=== PATIENT | male | born 1955 | race Caucasian/White ===

== ENCOUNTER → 2019-11-26 | Outpatient (CLI) | payer OTHER ==
--- NOTE | 2019-11-30 07:45 | PE ---
Nuclear medicine PET/CT HISTORY: Solitary pulmonary nodule, initial Patient received 10.3 mCi F-18 FDG intravenously in delayed scanning was performed from the skull bas e to the mid thighs. An attenuation correction CT, localization CT was performed. There are no comparisons. neck and CHEST: There is no cervical or supraclavicular adenopathy. No mediastinal, axillary, or alexsandra r adenopathy. There are coronary artery calcifications present. Minimal pericardial effusion, no pleu ral effusion. Within the right lower lobe there is a pulmonary nodule present measuring approximately 2 cm in size and showing associated hypermetabolic uptake, SUV 3.9. ABDOMEN: There is no evident liver mass, no adrenal mass. No retroperitoneal adenopathy. Kidneys, gal lbladder, spleen, pancreas are within normal limits. The stomach shows some wall thickening which is indeterminate. Mild uptake present along the stomach distally, SUV 3.2. Atheromatous changes present within the aorta. There is no ascites. Prostate is enlarged and shows associated calcifications. There is a low dense focus within the left groin measuring approximately 4.8 cm in greatest transvers e dimension with extension from the region anterior to the left hip along the proximal left lower ext remity is some local mass effect on the common femoral artery and vein. No associated uptake. Osseous structures are remarkable for arthropathy within the bilateral hips, there is degenerative disc brito ge, facet arthropathy in the lower lumbar spine. IMPRESSION: Hypermetabolic uptake is associated with the right lower lobe lung nodule, mild uptake wi thin the stomach. Indeterminate low dense focus within the left groin.
== END | disposition home or self-care (01) ==
LOC: RADPETMAIN 14:31
PROVIDERS: ATTEND Family Medicine
DX: R91.1 Solitary pulmonary nodule (principal); R93.3 Abnormal findings on diagnostic imaging of other parts of digestive tract
CPT/HCPCS: 78815; A9552

== ENCOUNTER 2019-12-14 01:13 | Inpatient (IN) | payer OTHER ==
--- NOTE | 2019-12-14 01:44 | ED ---
SOB HPI - General Chief Complaint: Shortness of Breath Stated Complaint: SOB Time Seen by Provider: 12/14/19 01:15 Source: patient, EMS, RN notes reviewed Mode of arrival: EMS Limitations: altered mental status - History of Present Illness Initial Comments: This patient is 64-year-old man transferred here from outside hospital for admission due to dyspnea. When I interview the patient, he states he has had shortness of breath going on for a couple of years. He is not able to provide much additional history as he does appear to be somnolent and I suspect has hypercarbia. Patient denies having a fever. States his cough is a same as it always is. No chest pain or leg swelling. MD Complaint: shortness of breath, cough -: year(s) Consistency: constant Improves With: nothing Worsens With: nothing Known History Of: COPD Associated Symptoms: denies other symptoms Treatments Prior to Arrival: oxygen, bronchodilator, diuretics - Related Data Home Oxygen Therapy: Yes Home Medications Medication Instructions Recorded Confirmed Albuterol Nebulized [Ventolin 2.5 mg INHALATION TID PRN 12/14/19 12/14/19 Nebulized] Albuterol Sulfate [Proair Hfa] 1 puff INHALATION QID PRN 12/14/19 12/14/19 Atorvastatin [Lipitor] 20 mg PO HS 12/14/19 12/14/19 Budesonide/Formoterol Fumarate 2 puff INHALATION BID 12/14/19 12/14/19 [Symbicort 160-4.5 Mcg Inhaler] Diltiazem HCl [Cartia Xt] 240 mg PO DAILY 12/14/19 12/14/19 Divalproex [Depakote] 500 mg PO BID 12/14/19 12/14/19 Lisinopril-Hctz 20-12.5 mg 1 tab PO DAILY 12/14/19 12/14/19 [Zestoretic 20-12.5] Naproxen Sodium [Naprelan] 500 mg PO BID 12/14/19 12/14/19 Omeprazole 20 mg PO DAILY 12/14/19 12/14/19 lamoTRIgine 100 mg PO BID 12/14/19 12/14/19 risperiDONE [RisperDAL] 6 mg PO HS 12/14/19 12/14/19 Allergies Allergy/AdvReac Type Severity Reaction Status Date / Time No Known Allergies Allergy Verified 12/14/19 08:26 Review of Systems ROS Statement: Those systems with pertinent positive or pertinent negative responses have been documented in the HPI. ROS Other: All systems not noted in ROS Statement are negative. Limitations: ROS unobtainable due to patients medical condition Constitutional: Denies: fever Respiratory: Reports: cough, dyspnea Cardiovascular: Denies: chest pain, palpitations, edema, syncope Gastrointestinal: Denies: abdominal pain, vomiting, melena, hematochezia Neurological: Denies: headache Past Medical History Past Medical History: Heart Failure, COPD, GERD/Reflux, Hypertension History of Any Multi-Drug Resistant Organisms: None Reported Past Surgical History: No Surgical Hx Reported Past Psychological History: Bipolar Smoking Status: Former smoker Past Alcohol Use History: None Reported Past Drug Use History: Marijuana - Past Family History Mother Family Medical History: COPD Father Family Medical History: Cancer Additional Family Medical History / Comment(s): esophageal CA General Exam Limitations: no limitations General appearance: alert, obtunded Head exam: Present: atraumatic, normocephalic Eye exam: Present: normal appearance. Absent: scleral icterus, conjunctival injection Neck exam: Present: normal inspection, full ROM Respiratory exam: Present: respiratory distress, wheezes, rales (Bilateral bases), decreased breath sounds. Absent: rhonchi, stridor Cardiovascular Exam: Present: regular rate, normal rhythm, gallop. Absent: systolic murmur, diastolic murmur, rubs GI/Abdominal exam: Present: soft. Absent: distended, tenderness, guarding, rebound, rigid, mass Extremities exam: Present: normal inspection, normal capillary refill. Absent: pedal edema, calf tenderness Back exam: Present: normal inspection. Absent: CVA tenderness (R), CVA tend erness (L) Neurological exam: Present: alert. Absent: motor sensory deficit Skin exam: Present: warm, dry, intact, normal color. Absent: rash Course Vital Signs 12/14/19 12/14/19 12/14/19 01:17 01:30 01:47 Temperature 97.8 F Pulse Rate 96 97 Respiratory 22 34 H 34 H Rate Blood Pressure 155/98 151/98 O2 Sat by Pulse 97 92 L Oximetry 12/14/19 12/14/19 12/14/19 02:00 02:30 02:45 Temperature Pulse Rate 93 86 95 Respiratory 24 24 24 Rate Blood Pressure 138/94 131/84 113/78 O2 Sat by Pulse 97 95 95 Oximetry 12/14/19 03:15 Temperature Pulse Rate 93 Respiratory 31 H Rate Blood Pressure 163/101 O2 Sat by Pulse 98 Oximetry Medical Decision Making - Medical Decision Making Patient is 64-year-old man transferred here from outside hospital for dyspnea. There does appear to be multifactorial etiology though mainly COPD with some element of CHF. Patient is placed on BiPAP and blood gas does show retention with pCO2 95. Clinically patient is starting to improve following the BiPAP. Case discussed with Dr. Hernandez and patient will go to ICU. Also case discussed with admitting physician. - Lab Data Result diagrams: 12/15/19 05:27 12/15/19 05:27 Lab Results 12/14/19 12/14/19 12/14/19 Range/Units 01:35 01:35 01:35 WBC 5.9 (3.8-10.6) k/uL RBC 5.40 (4.30-5.90) m/uL Hgb 17.1 (13.0-17.5) gm/dL Hct 54.2 H (39.0-53.0) % MCV 100.3 H (80.0-100.0) fL MCH 31.6 (25.0-35.0) pg MCHC 31.5 (31.0-37.0) g/dL RDW 13.7 (11.5-15.5) % Plt Count 236 (150-450) k/uL Neutrophils % 90 % Lymphocytes % 5 % Monocytes % 3 % Eosinophils % 1 % Basophils % 0 % Neutrophils # 5.3 (1.3-7.7) k/uL Lymphocytes # 0.3 L (1.0-4.8) k/uL Monocytes # 0.2 (0-1.0) k/uL Eosinophils # 0.1 (0-0.7) k/uL Basophils # 0.0 (0-0.2) k/uL PT 10.4 (9.0-12.0) sec INR 1.0 (<1.2) APTT 23.5 (22.0-30.0) sec VBG pH (7.31-7.41) VBG pCO2 (37-51) mmHg VBG HCO3 (24-28) mmol/L Sodium 131 L (137-145) mmol/L Potassium 4.6 (3.5-5.1) mmol/L Chloride 84 L (98-107) mmol/L Carbon Dioxide 42 H* (22-30) mmol/L Anion Gap 5 mmol/L BUN 15 (9-20) mg/dL Creatinine 0.66 (0.66-1.25) mg/dL Est GFR (CKD-EPI)AfAm >90 (>60 ml/min/1.73 sqM) Est GFR (CKD-EPI)NonAf >90 (>60 ml/min/1.73 sqM) Glucose 117 H (74-99) mg/dL Calcium 9.3 (8.4-10.2) mg/dL Total Bilirubin 0.5 (0.2-1.3) mg/dL AST 29 (17-59) U/L ALT 23 (4-49) U/L Alkaline Phosphatase 47 (38-126) U/L Troponin I (0.000-0.034) ng/mL NT-Pro-B Natriuret Pep pg/mL Total Protein 6.8 (6.3-8.2) g/dL Albumin 4.3 (3.5-5.0) g/dL 12/14/19 12/14/19 12/14/19 Range/Units 01:35 01:35 01:35 WBC (3.8-10.6) k/uL RBC (4.30-5.90) m/uL Hgb (13.0-17.5) gm/dL Hct (39.0-53.0) % MCV (80.0-100.0) fL MCH (25.0-35.0) pg MCHC (31.0-37.0) g/dL RDW (11.5-15.5) % Plt Count (150-450) k/uL Neutrophils % % Lymphocytes % % Monocytes % % Eosinophils % % Basophils % % Neutrophils # (1.3-7.7) k/uL Lymphocytes # (1.0-4.8) k/uL Monocytes # (0-1.0) k/uL Eosinophils # (0-0.7) k/uL Basophils # (0-0.2) k/uL PT (9.0-12.0) sec INR (<1.2) APTT (22.0-30.0) sec VBG pH 7.27 L (7.31-7.41) VBG pCO2 95 H* (37-51) mmHg VBG HCO3 42 H (24-28) mmol/L Sodium (137-145) mmol/L Potassium (3.5-5.1) mmol/L Chloride (98-107) mmol/L Carbon Dioxide (22-30) mmol/L Anion Gap mmol/L BUN (9-20) mg/dL Creatinine (0.66-1.25) mg/dL Est GFR (CKD-EPI)AfAm (>60 ml/min/1.73 sqM) Est GFR (CKD-EPI)NonAf (>60 ml/min/1.73 sqM) Glucose (74-99) mg/dL Calcium (8.4-10.2) mg/dL Total Bilirubin (0.2-1.3) mg/dL AST (17-59) U/L ALT (4-49) U/L Alkaline Phosphatase (38-126) U/L Troponin I 0.032 (0.000-0.034) ng/mL NT-Pro-B Natriuret Pep 2160 pg/mL Total Protein (6.3-8.2) g/dL Albumin (3.5-5.0) g/dL - EKG Data -: EKG Interpreted by Me EKG shows normal: sinus rhythm, axis (Normal), intervals (Normal), QRS complexes (There are Q waves in leads 3 and aVF consistent with possible old inferior infarct), ST-T waves Rate: normal (Rate 95 bpm) Critical Care Time Critical Care Time: Yes (35 minutes) Disposition Clinical Impression: COPD (chronic obstructive pulmonary disease), Acute respiratory failure, Hypercarbia Disposition: HOME SELF-CARE Condition: Good Is patient prescribed a controlled substance at d/c from ED?: No
[2019-12-14 01:54] LABS: VBG PH 7.27 (7.31-7.41)
[2019-12-14 01:55] LABS: Basophils % (A) 0 %; Eosinophils # (A) 0.1 k/uL (0-0.7); Eosinophils % (A) 1 %; HCT 54.2 % (39.0-53.0); HGB 17.1 gm/dL (13.0-17.5); Lymphocytes # (A) 0.3 k/uL (1.0-4.8); Lymphocytes % (A) 5 %; MCH 31.6 pg (25.0-35.0); MCHC 31.5 g/dL (31.0-37.0); MCV 100.3 fL (80.0-100.0); Mean Platelet Volume 7.5; Monocytes # (A) 0.2 k/uL (0-1.0); Monocytes % (A) 3 %; Neutrophils # (A) 5.3 k/uL (1.3-7.7); Neutrophils % (A) 90 %; Platelet Count 236 k/uL (150-450); RDW 13.7 % (11.5-15.5); WBC 5.9 k/uL (3.8-10.6)
[2019-12-14 02:03] LABS: ALT 23 U/L (4-49); AST 29 U/L (17-59); African American GFR (CKD) >90 (>60 ml/min/1.73 sqM); Albumin 4.3 g/dL (3.5-5.0); Alkaline Phosphatase 47 U/L (38-126); Blood Urea Nitrogen 15 mg/dL (9-20); Calcium 9.3 mg/dL (8.4-10.2); Chloride 84 mmol/L (98-107); Glucose 117 mg/dL (74-99); Non-African American GFR(CKD) >90 (>60 ml/min/1.73 sqM); Potassium 4.6 mmol/L (3.5-5.1); Sodium 131 mmol/L (137-145); Total Bilirubin 0.5 mg/dL (0.2-1.3); Total Protein 6.8 g/dL (6.3-8.2)
[2019-12-14 02:05] LABS: Partial Thromboplastin Time 23.5 sec (22.0-30.0); Prothrombin Time 10.4 sec (9.0-12.0)
[2019-12-14 02:09] LABS: Anion Gap 5 mmol/L
[2019-12-14 02:14] LABS: Carbon Dioxide 42 mmol/L (22-30)
[2019-12-14] MEDS ORDERED: ALBUTEROL NEBULIZED 2.5 MG/3 ML INHALATION PRN (02:45)
[2019-12-14 03:28] LABS: Glucose,Whole Blood 111 mg/dL (75-99)
[2019-12-14 04:53] LABS: Basophils % (A) 0 %; Eosinophils # (A) 0.1 k/uL (0-0.7); Eosinophils % (A) 1 %; HCT 54.3 % (39.0-53.0); HGB 17.5 gm/dL (13.0-17.5); Hypochromasia Slight; Lymphocytes # (A) 0.3 k/uL (1.0-4.8); Lymphocytes % (A) 5 %; MCHC 32.2 g/dL (31.0-37.0); MCV 102.5 fL (80.0-100.0); Macrocytosis Slight; Mean Platelet Volume 7.3; Monocytes # (A) 0.1 k/uL (0-1.0); Monocytes % (A) 1 %; Neutrophils # (A) 5.5 k/uL (1.3-7.7); Neutrophils % (A) 92 %; Platelet Count 238 k/uL (150-450); RBC 5.29 m/uL (4.30-5.90); RDW 13.7 % (11.5-15.5); WBC 5.9 k/uL (3.8-10.6)
[2019-12-14 05:11] LABS: African American GFR (CKD) >90 (>60 ml/min/1.73 sqM); Anion Gap 9 mmol/L; Blood Urea Nitrogen 14 mg/dL (9-20); Calcium 9.1 mg/dL (8.4-10.2); Carbon Dioxide 32 mmol/L (22-30); Chloride 88 mmol/L (98-107); Glucose 118 mg/dL (74-99); Non-African American GFR(CKD) >90 (>60 ml/min/1.73 sqM); Sodium 129 mmol/L (137-145)
[2019-12-14 05:20] LABS: Potassium 5.7 mmol/L (3.5-5.1)
[2019-12-14] MEDS ORDERED: NALOXONE 0.4 MG/ML 1 ML VIAL IV PRN (05:33)
[2019-12-14 06:02] LABS: African American GFR (CKD) >90 (>60 ml/min/1.73 sqM); Anion Gap 6 mmol/L; Blood Urea Nitrogen 15 mg/dL (9-20); Calcium 8.9 mg/dL (8.4-10.2); Carbon Dioxide 36 mmol/L (22-30); Chloride 87 mmol/L (98-107); Glucose 119 mg/dL (74-99); Non-African American GFR(CKD) >90 (>60 ml/min/1.73 sqM); Sodium 129 mmol/L (137-145)
[2019-12-14 06:07] LABS: Potassium 5.3 mmol/L (3.5-5.1)
[2019-12-14] MEDS: methylPREDNISolone SOD SUCCI 125 MG/2 ML VIAL IV SCH ×4 (06:07→23:24)
[2019-12-14] MEDS: BUDESONIDE 0.5 MG/2 ML NEBU INHALATION SCH ×2 (07:43→19:02)
[2019-12-14] MEDS: IPRATROPIUM-ALBUTEROL 3 ML NEB INHALATION SCH ×4 (07:43→19:02)
[2019-12-14] MEDS ORDERED: FUROSEMIDE 10 MG/ML 4 ML VIAL IV SCH (09:00)
--- NOTE | 2019-12-14 09:01 | XR ---
EXAMINATION TYPE: XR chest 1V portable DATE OF EXAM: 12/14/2019 COMPARISON: NONE HISTORY: ICU management TECHNIQUE: Single frontal view of the chest is obtained. FINDINGS: Retrocardiac opacity obscures the left hemidiaphragm and costophrenic angle. A 1.9 cm righ t pulmonary nodule and adjacent second smaller probable pulmonary nodule noted. Cardiomediastinal wallace houette size is enlarged. The osseous structures are intact. IMPRESSION: 1. Retrocardiac opacity may represent a trace left pleural effusion and atelectasis or pneumonia. 2. Right lower lobe pulmonary nodule measures 2 cm with possible adjacent smaller subcentimeter pulmo nary nodule.
[2019-12-14] MEDS ORDERED: IPRATROPIUM-ALBUTEROL 3 ML NEB INHALATION PRN (09:03)
[2019-12-14] MEDS: HEPARIN SODIUM,PORCINE 5,000 UNIT/ML 1 ML VIAL SQ SCH ×3 (09:03→23:24)
[2019-12-14] MEDS: PANTOPRAZOLE 40 MG/10 ML VIAL IV SCH (09:04)
[2019-12-14] MEDS ORDERED: ALPRAZolam 0.25 MG TAB PO PRN (09:05)
[2019-12-14] MEDS ORDERED: LORazepam 2 MG/ML INJ IV PRN ×2 (09:14)
[2019-12-14 09:16] LABS: ABG Base Excess 16.4 mmol/L; ABG Oxygen Saturation 87.7 % (94-97); ABG PCO2 69 mmHg (35-45); ABG PH 7.39 (7.35-7.45); ABG TCO2 44 mmol/L (19-24); Allen Test Performed? Yes
[2019-12-14] MEDS: LORazepam 2 MG/ML INJ IV PRN ×2 (09:19→22:28)
[2019-12-14 09:27] LABS: ABG HCO3 41 mmol/L (21-25); ABG PO2 54 mmHg (83-108)
[2019-12-14] MEDS: THIAMINE 100 MG TAB PO SCH (10:30)
[2019-12-14] MEDS: DOXYCYCLINE 100 MG CAP PO SCH ×2 (10:30→22:33)
--- NOTE | 2019-12-14 11:15 | US ---
EXAMINATION TYPE: US venous doppler duplex LE DATE OF EXAM: 12/14/2019 10:39 AM COMPARISON: NONE CLINICAL HISTORY: lower extremity swelling. Edema SIDE PERFORMED: bilateral TECHNIQUE: The lower extremity deep venous system is examined utilizing real time linear array sonog reshma with graded compression, doppler sonography and color-flow sonography. VESSELS IMAGED: External Iliac Vein (EIV) Common Femoral Vein Deep Femoral Vein Greater Saphenous Vein * Femoral Vein Popliteal Vein Small Saphenous Vein * Proximal Calf Veins (* superficial vessels) Right Leg: No evidence of DVT Left Leg: No evidence of DVT. Complex area left groin = 6.9 x 3.0 x 3.8cm IMPRESSION : Complex avascular masslike area in the left groin measuring up to 6.9 cm. Correlate for any recent intervention or trauma as this could relate to a hematoma or less likely neoplasm. No sono graphic evidence of deep venous thrombosis within either the visualized bilateral lower extremities.
--- NOTE | 2019-12-14 11:51 | ECHOF ---
Referral Reason:CHF MEASUREMENTS -------- HEIGHT: 180.3 cm WEIGHT: 81.6 kg BP: 150/92 RVIDd: 5.1 cm (< 3.3) IVSd: 1.4 cm (0.6 - 1.1) LVIDd: 4.7 cm (3.9 - 5.3) LVPWd: 1.6 cm (0.6 - 1.1) IVSs: 1.9 cm LVIDs: 3.5 cm LVPWs: 2.0 cm LAESV Index (A-L): 22.59 ml/m Ao Diam: 3.4 cm (2.0 - 3.7) AV Cusp: 2.1 cm (1.5 - 2.6) LA Diam: 4.1 cm (2.7 - 3.8) MV EXCURSION: 14.751 mm (> 18.000) MV EF SLOPE: 77 mm/s (70 - 150) EPSS: 1.2 cm MV E Sheldon: 1.35 m/s MV DecT: 74 ms MV A Sheldon: 0.50 m/s MV E/A Ratio: 2.68 RAP: 15.00 mmHg RVSP: 49.31 mmHg TAPSE: 19.09 mm FINDINGS -------- Resting tachycardia (HR>100bpm). This was a technically adequate study. The left ventricular size is normal. There is moderate concentric left ventricular hypertrophy. O verall left ventricular systolic function is mild-moderately impaired with, an EF between 40 - 45 %. The right ventricle is severely enlarged. Normal LA size by volume 22+/-6 ml/m2. The right atrial size is normal. Interatrial and interventricular septum intact. The aortic valve is trileaflet and appears structurally normal. The mitral valve is normal. Mild mitral regurgitation is present. The tricuspid valve appears structurally normal. Mild tricuspid regurgitation present. There is m oderate pulmonary hypertension. The right ventricular systolic pressure, as measured by Doppler, is 49.31mmHg. There is no pulmonic regurgitation present. The aortic root size is normal. The inferior vena cava is mildly dilated. There is a small, generalized pericardial effusion present. CONCLUSIONS -------- 1. Resting tachycardia (HR>100bpm). 2. This was a technically adequate study. 3. The left ventricular size is normal. 4. There is moderate concentric left ventricular hypertrophy. 5. Overall left ventricular systolic function is mild-moderately impaired with, an EF between 40 - 45 %. 6. The right ventricle is severely enlarged. 7. Normal LA size by volume 22+/-6 ml/m2. 8. The right atrial size is normal. 9. Interatrial and interventricular septum intact. 10. The aortic valve is trileaflet and appears structurally normal. 11. The mitral valve is normal. 12. Mild mitral regurgitation is present. 13. The tricuspid valve appears structurally normal. 14. Mild tricuspid regurgitation present. 15. There is moderate pulmonary hypertension. 16. The right ventricular systolic pressure, as measured by Doppler, is 49.31mmHg. 17. There is no pulmonic regurgitation present. 18. The aortic root size is normal. 19. The inferior vena cava is mildly dilated. 20. There is a small, generalized pericardial effusion present. MANAGER SUPPORT: Vane Hitchcock RDCS
--- NOTE | 2019-12-14 12:25 | P.CNPUL ---
History of Present Illness Consult date: 12/14/19 Requesting physician: Rene Perez Reason for consult: COPD, lung mass Chief complaint: Shortness of breath and change in mental status. History of present illness: This is a 64-year-old white male familiar to my service. Patient was seen in my office a few weeks ago, and I saw him on consultation for a right lower lobe nodule, highly suspicious for bronchogenic carcinoma. However the patient was also noted to have severe end-stage COPD, FEV1 in my office was 20% at best. Patient is O2 dependent, and during his last evaluation I recommended a trial of prednisone for his underlying COPD and I optimized his bronchodilators. When I evaluated the patient, I explained to him and to his that the patient had suspicious nodule in the right lower lobe for bronchogenic carcinoma. However the patient was also made aware that considering his severe COPD he is not a candidate for surgical referral he is not a candidate for even bronchoscopy considering the severity of his COPD. I recommended a PET scan and he was made aware that if the PET scan shows increased hypermetabolic activity in the right lower lobe nodule, I would recommend referring the patient to radiation oncology for radiation treatment only. Patient did have the PET scan recently, and it showed uptake in the right lower lobe nodule highly suspicious for bronchogenic carcinoma. No other areas were noted. Patient was noted to have a slight uptake and a lipoma-like lesion in the left groin area, but clinically the findings of the left groin area are mostly findings of fatty tumor. Patient was transferred yesterday from [facility], he was seen yesterday for symptoms acute exacerbation of COPD, and he was confused, hypoxic, and hypercapnic. Sent to [facility], placed on BiPAP overnight, and I saw him on consultation early this morning. I did recommend optimizing his pulmonary status for his underlying COPD exacerbation, I also recommended a consultation with radiation oncology/Dr. Mcelroy to consider eventual radiation treatment for his right lower lobe nodule. Again the patient is clearly not a candidate for lung biopsy and is not a candidate for surgery. Patient is a very poor historian, and I had a chance to discuss his condition over the phone with his . Review of Systems ROS unobtainable: due to mental status Past Medical History Past Medical History: Heart Failure, COPD, GERD/Reflux, Hypertension History of Any Multi-Drug Resistant Organisms: None Reported Past Surgical History: No Surgical Hx Reported Past Psychological History: Bipolar Smoking Status: Former smoker Past Alcohol Use History: None Reported Past Drug Use History: Marijuana - Past Family History Mother Family Medical History: COPD Father Family Medical History: Cancer Additional Family Medical History / Comment(s): esophageal CA Medications and Allergies Home Medications Medication Instructions Recorded Confirmed Type Albuterol Nebulized [Ventolin 2.5 mg INHALATION TID PRN 12/14/19 12/14/19 History Nebulized] Albuterol Sulfate [Proair Hfa] 1 puff INHALATION QID PRN 12/14/19 12/14/19 History Atorvastatin [Lipitor] 20 mg PO HS 12/14/19 12/14/19 History Budesonide/Formoterol Fumarate 2 puff INHALATION BID 12/14/19 12/14/19 History [Symbicort 160-4.5 Mcg Inhaler] Diltiazem HCl [Cartia Xt] 240 mg PO DAILY 12/14/19 12/14/19 History Divalproex [Depakote] 500 mg PO BID 12/14/19 12/14/19 History Lisinopril-Hctz 20-12.5 mg 1 tab PO DAILY 12/14/19 12/14/19 History [Zestoretic 20-12.5] Naproxen Sodium [Naprelan] 500 mg PO BID 12/14/19 12/14/19 History Omeprazole 20 mg PO DAILY 12/14/19 12/14/19 History lamoTRIgine 100 mg PO BID 12/14/19 12/14/19 History risperiDONE [RisperDAL] 6 mg PO HS 12/14/19 12/14/19 History Allergies Allergy/AdvReac Type Severity Reaction Status Date / Time No Known Allergies Allergy Verified 12/14/19 08:26 Physical Exam Vitals: Vital Signs Temp Pulse Resp BP Pulse Ox 12/14/19 11:50 94 12/14/19 11:38 93 12/14/19 11:00 98 19 144/92 90 L 12/14/19 10:00 95 22 152/100 95 12/14/19 09:00 107 H 32 H 161/102 89 L 12/14/19 08:00 97 F L 98 27 H 178/114 92 L 12/14/19 07:55 97 12/14/19 07:43 97 12/14/19 07:00 92 25 H 149/90 92 L 12/14/19 06:00 94 25 H 150/92 91 L 12/14/19 05:00 99 20 159/98 93 L 12/14/19 04:30 25 H 159/98 95 12/14/19 04:00 98 F 94 28 H 141/96 95 12/14/19 03:30 98 36 H 147/101 95 12/14/19 03:15 93 31 H 163/101 98 12/14/19 02:45 95 24 113/78 95 12/14/19 02:30 86 24 131/84 95 12/14/19 02:00 93 24 138/94 97 12/14/19 01:47 34 H 12/14/19 01:30 97 34 H 151/98 92 L 12/14/19 01:17 97.8 F 96 22 155/98 97 Intake and Output 12/13/19 12/14/19 12/14/19 22:59 06:59 14:59 Intake Total 250 Output Total 600 500 Balance -600 -250 Intake: Oral 250 Output: Urine 600 500 Other: Voiding Method Urinal Urinal # Voids 0 Weight 81.647 kg General appearance: Revealed a 64-year-old white male in moderate respiratory distress. Head exam: atraumatic, normocephalic Eye exam: PERRLA, EOMI, no icterus. Neck exam: No neck masses no JVD no stridor. Respiratory exam: Crackles and rhonchi at the bases, wheezing on forced expiratory maneuver noted bilaterally. Cardiovascular Exam: Normal S1 and S2, no S3 gallop. No murmur. GI/Abdominal exam: Soft, nontender, no megaly, no rebound, no guarding, positive bowel sounds. Extremities exam: Mild clubbing, no edema, no cyanosis. Left hip area was examined, and there is a large fatty-like tumor freely movable over the area of the left hip. Back exam: No limitation in range of motion. No tenderness. Neurological exam: Arousable, but slightly confused, patient is not aware of what is exactly going on regarding his pulmonary status. Although I have seen him recently, and he doesn't recall. Skin exam: No cyanosis. No rashes Results - Laboratory Findings CBC and BMP: 12/14/19 04:39 12/14/19 05:32 ABG ABG pH 7.39 (7.35-7.45) 12/14/19 09:14 ABG pCO2 69 mmHg (35-45) H 12/14/19 09:14 ABG pO2 54 mmHg (83-108) L* 12/14/19 09:14 ABG O2 Saturation 87.7 % (94-97) L 12/14/19 09:14 PT/INR, D-dimer PT 10.4 sec (9.0-12.0) 12/14/19 01:35 INR 1.0 (<1.2) 12/14/19 01:35 Abnormal lab findings: Abnormal Labs 12/14/19 12/14/19 12/14/19 01:35 01:35 01:35 Hct 54.2 H MCV 100.3 H Lymphocytes # 0.3 L ABG pCO2 ABG pO2 ABG HCO3 ABG Total CO2 ABG O2 Saturation VBG pH 7.27 L VBG pCO2 95 H* VBG HCO3 42 H Sodium 131 L Potassium Chloride 84 L Carbon Dioxide 42 H* Creatinine Glucose 117 H POC Glucose (mg/dL) 12/14/19 12/14/19 12/14/19 03:26 04:39 04:39 Hct 54.3 H MCV 102.5 H Lymphocytes # 0.3 L ABG pCO2 ABG pO2 ABG HCO3 ABG Total CO2 ABG O2 Saturation VBG pH VBG pCO2 VBG HCO3 Sodium 129 L Potassium 5.7 H Chloride 88 L Carbon Dioxide 32 H Creatinine 0.59 L Glucose 118 H POC Glucose (mg/dL) 111 H 12/14/19 12/14/19 05:32 09:14 Hct MCV Lymphocytes # ABG pCO2 69 H ABG pO2 54 L* ABG HCO3 41 H* ABG Total CO2 44 H ABG O2 Saturation 87.7 L VBG pH VBG pCO2 VBG HCO3 Sodium 129 L Potassium 5.3 H Chloride 87 L Carbon Dioxide 36 H Creatinine 0.54 L Glucose 119 H POC Glucose (mg/dL) - Diagnostic Findings Chest x-ray: image reviewed CT scan - chest: image reviewed (PET scan was also reviewed and as noted in HPI.) Assessment and Plan Assessment: Impression: Acute on chronic hypoxic and hypercapnic respiratory failure secondary to COPD exacerbation Acute exacerbation of COPD Acute purulent tracheobronchitis. Right lower lobe mass, strongly suspicious for bronchogenic carcinoma with abnormal PET scan. Left groin mass, most likely secondary to lipoma or fatty tumor. However may need further evaluation on outpatient basis. Tobacco dependence syndrome. Chronic hypoxic respiratory failure secondary to underlying severe COPD. FEV1 is in the range of 20%. History of alcohol abuse. Recommendation: Continue present course of bronchodilators. Continue oxygen and may need BiPAP intermittently. Continue empiric antibiotics. Continue IV Solu-Medrol. GI and DVT prophylaxis. Continue to monitor in the ICU. Placed on [place] protocol. Initiated consultation with radiation oncology for radiation treatment without tissue diagnosis. This could be done on outpatient basis. Overall prognosis is extremely poor and guarded, we will continue to follow. Again his condition and my recommendations were discussed with his over the phone. Time with Patient: Greater than 30
[2019-12-14] MEDS: FORMOTEROL FUMARATE 20 MCG/2 ML NEBU INHALATION SCH (19:02)
--- NOTE | 2019-12-14 20:01 | P.HPIM ---
History of Present Illness H&P Date: 12/14/19 Chief Complaint: Dyspnea History of presenting complaint: This is a 64-year-old patient who follows with Dr. Galvin. Patient is known to Dr. Qureshi. He was then seen for a right lower lobe nodule suspicious 10 for a bronchogenic carcinoma. Patient also diagnosed her with severe end-stage COPD with a FEV1 of 20%. Patient's been on home oxygen. Patient did have a PET scan that showed increased uptake in that right lower lobe nodule suspicious for bronchogenic carcinoma. Patient presented to [facility] where he was short of breath lethargic hypercapnic. Was put on a BiPAP overnight. Patient in the ICU. Difficult to get history from the patient. Corroborative history was obtained to the ER nurse and the transfer notes. No history suggestive of any fever and chills. Admitting review of systems really cannot be done as patient rather lethargic and tired. Past medical history to include: COPD, GERD, hypertension, home oxygen, bipolar Social history: Patient is an ex-smoker lives with his . Oxygen at home. Physical examination: VITAL SIGNS: 97.8, 96, 34, 151/98, 97% on nonrebreather on presentation GENERAL: BMI 25.8, laying in bed lethargic short of breath. EYES: Pupils equal. Conjunctiva normal. HEENT: External appearance of nose and ears normal, oral cavity dry. NECK: JVD unable to assess; masses not palpable. HEART: First and second heart sounds are normal; no edema. LUNGS: Respiratory rate increased; diminished breath sounds, prolonged expiration accessory muscle used. ABDOMEN: Soft, nontender, liver spleen not palpable, no masses palpable. PSYCH: Lethargic but arousablel. NEUROLOGICAL: [Cranial nerves grossly intact; no facial asymmetry, moving all 4 limbs LYMPHATICS: No lymph nodes palpable in the axilla and neck INVESTIGATIONS, reviewed in the clinical context: White count 5.9 hemoglobin 17.1 platelets 236 Potassium 4.6 bicarb 42 creatinine 0.66 troponin I 0.032, proBNP 2160 EKG tracing personally reviewed by me-normal sinus rhythm, T-wave changes Chest x-ray film personally reviewed by me-right lower lobe nodule from cardiomegaly 2-D echocardiogram-EF 40-45% moderate pulmonary hypertension moderate concentric LVH Assessment: -Acute severe COPD exacerbation in a patient with known FEV1 of 20%, in an ex- smoker -Acute hypoxic and hypercapnic respiratory failure on chronic patient requiring BiPAP initially -Acute metabolic encephalopathy from CO2 narcosis -Right lower lobe lung nodule highly suspicious for bronchogenic carcinoma in view of her positive PET scan -Chronic congestive heart failure from systolic dysfunction EF 4045% -Hypertensive heart disease -GERD -Essential hypertension -Secondary pulmonary hypertension due to COPD -Hyperkalemia -Hyponatremia Plan: Patient was moved to the ICU from the medical floor. Initially put on a BiPAP. IV Solu-Medrol bronchodilators. Home medications resumed. Patient's Zestoretic will be held off. Other home medications to continue. Lovenox for DVT prophylaxis. Prognosis guarded. Seen by farmworker animal Dr. Qureshi Past Medical History Past Medical History: Heart Failure, COPD, GERD/Reflux, Hypertension History of Any Multi-Drug Resistant Organisms: None Reported Past Surgical History: No Surgical Hx Reported Past Psychological History: Bipolar Smoking Status: Former smoker Past Alcohol Use History: None Reported Past Drug Use History: Marijuana - Past Family History Mother Family Medical History: COPD Father Family Medical History: Cancer Additional Family Medical History / Comment(s): esophageal CA Medications and Allergies Home Medications Medication Instructions Recorded Confirmed Type Albuterol Nebulized [Ventolin 2.5 mg INHALATION TID PRN 12/14/19 12/14/19 History Nebulized] Albuterol Sulfate [Proair Hfa] 1 puff INHALATION QID PRN 12/14/19 12/14/19 History Atorvastatin [Lipitor] 20 mg PO HS 12/14/19 12/14/19 History Budesonide/Formoterol Fumarate 2 puff INHALATION BID 12/14/19 12/14/19 History [Symbicort 160-4.5 Mcg Inhaler] Diltiazem HCl [Cartia Xt] 240 mg PO DAILY 12/14/19 12/14/19 History Divalproex [Depakote] 500 mg PO BID 12/14/19 12/14/19 History Lisinopril-Hctz 20-12.5 mg 1 tab PO DAILY 12/14/19 12/14/19 History [Zestoretic 20-12.5] Naproxen Sodium [Naprelan] 500 mg PO BID 12/14/19 12/14/19 History Omeprazole 20 mg PO DAILY 12/14/19 12/14/19 History lamoTRIgine 100 mg PO BID 12/14/19 12/14/19 History risperiDONE [RisperDAL] 6 mg PO HS 12/14/19 12/14/19 History Allergies Allergy/AdvReac Type Severity Reaction Status Date / Time No Known Allergies Allergy Verified 12/14/19 08:26 Physical Exam Vitals: Vital Signs Temp Pulse Resp BP Pulse Ox 12/14/19 07:55 97 12/14/19 07:43 97 12/14/19 07:00 92 25 H 149/90 92 L 12/14/19 06:00 94 25 H 150/92 91 L 12/14/19 05:00 99 20 159/98 93 L 12/14/19 04:30 25 H 159/98 95 12/14/19 04:00 98 F 94 28 H 141/96 95 12/14/19 03:30 98 36 H 147/101 95 12/14/19 03:15 93 31 H 163/101 98 12/14/19 02:45 95 24 113/78 95 12/14/19 02:30 86 24 131/84 95 12/14/19 02:00 93 24 138/94 97 12/14/19 01:47 34 H 12/14/19 01:30 97 34 H 151/98 92 L 12/14/19 01:17 97.8 F 96 22 155/98 97 Intake and Output 12/13/19 12/14/19 12/14/19 22:59 06:59 14:59 Output Total 600 Balance -600 Output: Urine 600 Other: Voiding Method Urinal # Voids 0 Weight 81.647 kg Results CBC & Chem 7: 12/14/19 04:39 12/14/19 05:32 Labs: Abnormal Lab Results - Last 24 Hours (Table) 12/14/19 12/14/19 12/14/19 Range/Units 01:35 01:35 01:35 Hct 54.2 H (39.0-53.0) % MCV 100.3 H (80.0-100.0) fL Lymphocytes # 0.3 L (1.0-4.8) k/uL ABG pCO2 (35-45) mmHg ABG pO2 (83-108) mmHg ABG HCO3 (21-25) mmol/L ABG Total CO2 (19-24) mmol/L ABG O2 Saturation (94-97) % VBG pH 7.27 L (7.31-7.41) VBG pCO2 95 H* (37-51) mmHg VBG HCO3 42 H (24-28) mmol/L Sodium 131 L (137-145) mmol/L Potassium (3.5-5.1) mmol/L Chloride 84 L (98-107) mmol/L Carbon Dioxide 42 H* (22-30) mmol/L Creatinine (0.66-1.25) mg/dL Glucose 117 H (74-99) mg/dL POC Glucose (mg/dL) (75-99) mg/dL 12/14/19 12/14/19 12/14/19 Range/Units 03:26 04:39 04:39 Hct 54.3 H (39.0-53.0) % MCV 102.5 H (80.0-100.0) fL Lymphocytes # 0.3 L (1.0-4.8) k/uL ABG pCO2 (35-45) mmHg ABG pO2 (83-108) mmHg ABG HCO3 (21-25) mmol/L ABG Total CO2 (19-24) mmol/L ABG O2 Saturation (94-97) % VBG pH (7.31-7.41) VBG pCO2 (37-51) mmHg VBG HCO3 (24-28) mmol/L Sodium 129 L (137-145) mmol/L Potassium 5.7 H (3.5-5.1) mmol/L Chloride 88 L (98-107) mmol/L Carbon Dioxide 32 H (22-30) mmol/L Creatinine 0.59 L (0.66-1.25) mg/dL Glucose 118 H (74-99) mg/dL POC Glucose (mg/dL) 111 H (75-99) mg/dL 12/14/19 12/14/19 Range/Units 05:32 09:14 Hct (39.0-53.0) % MCV (80.0-100.0) fL Lymphocytes # (1.0-4.8) k/uL ABG pCO2 69 H (35-45) mmHg ABG pO2 54 L* (83-108) mmHg ABG HCO3 41 H* (21-25) mmol/L ABG Total CO2 44 H (19-24) mmol/L ABG O2 Saturation 87.7 L (94-97) % VBG pH (7.31-7.41) VBG pCO2 (37-51) mmHg VBG HCO3 (24-28) mmol/L Sodium 129 L (137-145) mmol/L Potassium 5.3 H (3.5-5.1) mmol/L Chloride 87 L (98-107) mmol/L Carbon Dioxide 36 H (22-30) mmol/L Creatinine 0.54 L (0.66-1.25) mg/dL Glucose 119 H (74-99) mg/dL POC Glucose (mg/dL) (75-99) mg/dL
[2019-12-14] MEDS ORDERED: ATORVASTATIN 20 MG TAB PO SCH (21:00)
[2019-12-14] MEDS ORDERED: risperiDONE 2 MG TAB PO SCH (21:00)
[2019-12-14] MEDS: lamoTRIgine 100 MG TAB PO SCH (22:28)
[2019-12-14] MEDS: DIVALPROEX 500 MG TABLET.DR PO SCH (22:28)
[2019-12-15] MEDS: LORazepam 2 MG/ML INJ IV PRN (01:34)
[2019-12-15] MEDS: methylPREDNISolone SOD SUCCI 125 MG/2 ML VIAL IV SCH ×3 (05:14→18:13)
[2019-12-15 05:48] LABS: Basophils % (A) 0 %; Eosinophils % (A) 0 %; HCT 49.5 % (39.0-53.0); HGB 15.4 gm/dL (13.0-17.5); Lymphocytes # (A) 0.3 k/uL (1.0-4.8); Lymphocytes % (A) 3 %; MCH 31.5 pg (25.0-35.0); MCHC 31.2 g/dL (31.0-37.0); MCV 101.2 fL (80.0-100.0); Macrocytosis Slight; Mean Platelet Volume 7.6; Monocytes # (A) 0.3 k/uL (0-1.0); Monocytes % (A) 3 %; Neutrophils # (A) 9.5 k/uL (1.3-7.7); Neutrophils % (A) 93 %; Platelet Count 238 k/uL (150-450); RBC 4.89 m/uL (4.30-5.90); RDW 13.7 % (11.5-15.5); WBC 10.1 k/uL (3.8-10.6)
[2019-12-15 06:01] LABS: African American GFR (CKD) >90 (>60 ml/min/1.73 sqM); Blood Urea Nitrogen 23 mg/dL (9-20); Calcium 8.9 mg/dL (8.4-10.2); Chloride 88 mmol/L (98-107); Glucose 139 mg/dL (74-99); Non-African American GFR(CKD) >90 (>60 ml/min/1.73 sqM); Potassium 4.9 mmol/L (3.5-5.1); Sodium 132 mmol/L (137-145)
[2019-12-15 06:08] LABS: Anion Gap 3 mmol/L
[2019-12-15 07:04] LABS: Carbon Dioxide 41 mmol/L (22-30)
[2019-12-15] MEDS: FORMOTEROL FUMARATE 20 MCG/2 ML NEBU INHALATION SCH (08:13)
[2019-12-15] MEDS: IPRATROPIUM-ALBUTEROL 3 ML NEB INHALATION SCH ×3 (08:13→17:08)
[2019-12-15] MEDS: BUDESONIDE 0.5 MG/2 ML NEBU INHALATION SCH (08:13)
[2019-12-15] MEDS: DIVALPROEX 500 MG TABLET.DR PO SCH (09:54)
[2019-12-15] MEDS: HEPARIN SODIUM,PORCINE 5,000 UNIT/ML 1 ML VIAL SQ SCH ×2 (09:54→15:19)
[2019-12-15] MEDS: lamoTRIgine 100 MG TAB PO SCH (09:54)
[2019-12-15] MEDS: PANTOPRAZOLE 40 MG/10 ML VIAL IV SCH (09:54)
[2019-12-15] MEDS: DOXYCYCLINE 100 MG CAP PO SCH (09:54)
[2019-12-15] MEDS: THIAMINE 100 MG TAB PO SCH (09:55)
--- NOTE | 2019-12-15 11:47 | P.PN ---
Subjective Progress Note Date: 12/15/19 Principal diagnosis: Acute on chronic hypoxic and hypercapnic respiratory failure secondary to COPD exacerbation This is a 64-year-old white male familiar to my service. Patient was seen in my office a few weeks ago, and I saw him on consultation for a right lower lobe nodule, highly suspicious for bronchogenic carcinoma. However the patient was also noted to have severe end-stage COPD, FEV1 in my office was 20% at best. Patient is O2 dependent, and during his last evaluation I recommended a trial of prednisone for his underlying COPD and I optimized his bronchodilators. When I evaluated the patient, I explained to him and to his that the patient had suspicious nodule in the right lower lobe for bronchogenic carcinoma. However the patient was also made aware that considering his severe COPD he is not a candidate for surgical referral he is not a candidate for even bronchoscopy considering the severity of his COPD. I recommended a PET scan and he was made aware that if the PET scan shows increased hypermetabolic activity in the right lower lobe nodule, I would recommend referring the patient to radiation oncology for radiation treatment only. Patient did have the PET scan recently, and it showed uptake in the right lower lobe nodule highly suspicious for bronchogenic carcinoma. No other areas were noted. Patient was noted to have a slight uptak e and a lipoma-like lesion in the left groin area, but clinically the findings of the left groin area are mostly findings of fatty tumor. Patient was transferred yesterday from [facility], he was seen yesterday for symptoms acute exacerbation of COPD, and he was confused, hypoxic, and hypercapnic. Sent to [facility], placed on BiPAP overnight, and I saw him on consultation early this morning. I did recommend optimizing his pulmonary status for his underlying COPD exacerbation, I also recommended a consultation with radiation oncology/Dr. Mcelroy to consider eventual radiation treatment for his right lower lobe nodule. Again the patient is clearly not a candidate for lung biopsy and is not a candidate for surgery. Patient is a very poor historian, and I had a chance to discuss his condition over the phone with his . Reevaluated today on 12/15/19, patient remains in the ICU, presently on 12 L high flow nasal cannula, patient is lethargic and confused, refusing BiPAP. Patient was on Ativan which I have discontinued. He is hemodynamically stable. Seems to be a bit tachypneic, not in extreme distress. His O2 saturation is 95% hence I cut down his FiO2 down to 8 L/m. Again I have discontinued his Ativan because of lethargy. CBC is relatively normal electrolytes are normal bicarb is 41 which is expected considering his underlying chronic hypercapnic respiratory failure. Objective - Vital Signs Vital signs: Vital Signs Temp 97.5 F L 12/15/19 09:00 Pulse 111 H 12/15/19 11:36 Resp 21 12/15/19 11:00 BP 165/109 12/15/19 09:00 Pulse Ox 89 L 12/15/19 11:00 Intake & Output 12/14/19 12/15/19 12/15/19 18:59 06:59 18:59 Intake Total 900 400 Output Total 1100 700 750 Balance -200 -300 -750 Weight 81.6 kg Intake: Oral 900 400 Output: Urine 1100 700 750 Other: Voiding Method Urinal Urinal # Voids 0 - Exam General appearance: Revealed a 64-year-old white male in mild respiratory distress. Head exam: atraumatic, normocephalic Eye exam: PERRLA, EOMI, no icterus. Neck exam: No neck masses no JVD no stridor. Respiratory exam: Crackles and rhonchi at the bases, improved compared to yesterday, but not resolved. Cardiovascular Exam: Normal S1 and S2, no S3 gallop. No murmur. GI/Abdominal exam: Soft, nontender, no megaly, no rebound, no guarding, positive bowel sounds. Extremities exam: Mild clubbing, no edema, no cyanosis. Left hip area was examined, and there is a large fatty-like tumor freely movable over the area of the left hip. Back exam: No limitation in range of motion. No tenderness. Neurological exam: Arousable, but slightly confused, patient is not aware of what is exactly going on regarding his pulmonary status. Although I have seen him recently, and he doesn't recall. Skin exam: No cyanosis. No rashes. - Labs CBC & Chem 7: 12/15/19 05:27 12/15/19 05:27 Labs: Abnormal Lab Results - Last 24 Hours (Table) 12/15/19 12/15/19 Range/Units 05:27 05:27 MCV 101.2 H (80.0-100.0) fL Neutrophils # 9.5 H (1.3-7.7) k/uL Lymphocytes # 0.3 L (1.0-4.8) k/uL Sodium 132 L (137-145) mmol/L Chloride 88 L (98-107) mmol/L Carbon Dioxide 41 H* (22-30) mmol/L BUN 23 H (9-20) mg/dL Creatinine 0.51 L (0.66-1.25) mg/dL Glucose 139 H (74-99) mg/dL Assessment and Plan Assessment: Impression: Acute on chronic hypoxic and hypercapnic respiratory failure secondary to COPD exacerbation Acute exacerbation of COPD Acute purulent tracheobronchitis. Right lower lobe mass, strongly suspicious for bronchogenic carcinoma with abnormal PET scan. Left groin mass, most likely secondary to lipoma or fatty tumor. However may need further evaluation on outpatient basis. Tobacco dependence syndrome. Chronic hypoxic respiratory failure secondary to underlying severe COPD. FEV1 is in the range of 20%. History of alcohol abuse. Recommendation: Continue present course of bronchodilators. Continue oxygen, consider BiPAP as needed. Continue empiric antibiotics. Continue IV Solu-Medrol. GI and DVT prophylaxis. Continue to monitor in the ICU. Hold Ativan for now and monitor for any signs of alcohol withdrawal. Radiation oncology to evaluate on consultation.. Overall prognosis is extremely poor and guarded, we will continue to follow. seems to be open according to the nurses on the case to consider hospice if we believe that the patient has terminal illness, indeed history of illness is severe end-stage COPD. Time with Patient: Less than 30
[2019-12-15 13:17] VITALS: BP 149/95; TEMP 97.9
--- NOTE | 2019-12-15 16:17 | P.CONS ---
History of Present Illness - Reason for Consult Consult date: 12/15/19 lung nodule Requesting physician: Sadie Hernandez - Chief Complaint dyspnea, altered mental status - History of Present Illness The patient is a 64 year old male with O2 dependent-end stage COPD. He was recently found to have a 2 cm nodule in the RLL which was FDG avid. He was not felt to be a good candidate for biopsy due to very poor lung function (FEV1<20%). He was hospitalized due to COPD exacerbation. During my visit with the patient he shows altered mental status. He does answer when calling his name, but falls right back asleep. He has been hypercarbic, and unfortunately has not tolerated BiPAP. Dr. Hernandez is on the phone discussing hospice for the patient due to his lack of improvement. Review of Systems ROS unobtainable: due to mental status Past Medical History Past Medical History: Heart Failure, COPD, GERD/Reflux, Hypertension History of Any Multi-Drug Resistant Organisms: None Reported Past Surgical History: No Surgical Hx Reported Past Psychological History: Bipolar Smoking Status: Former smoker Past Alcohol Use History: None Reported Past Drug Use History: Marijuana - Past Family History Mother Family Medical History: COPD Father Family Medical History: Cancer Additional Family Medical History / Comment(s): esophageal CA Medications and Allergies Home Medications Medication Instructions Recorded Confirmed Type Albuterol Nebulized [Ventolin 2.5 mg INHALATION TID PRN 12/14/19 12/14/19 History Nebulized] Albuterol Sulfate [Proair Hfa] 1 puff INHALATION QID PRN 12/14/19 12/14/19 History Atorvastatin [Lipitor] 20 mg PO HS 12/14/19 12/14/19 History Budesonide/Formoterol Fumarate 2 puff INHALATION BID 12/14/19 12/14/19 History [Symbicort 160-4.5 Mcg Inhaler] Diltiazem HCl [Cartia Xt] 240 mg PO DAILY 12/14/19 12/14/19 History Divalproex [Depakote] 500 mg PO BID 12/14/19 12/14/19 History Lisinopril-Hctz 20-12.5 mg 1 tab PO DAILY 12/14/19 12/14/19 History [Zestoretic 20-12.5] Naproxen Sodium [Naprelan] 500 mg PO BID 12/14/19 12/14/19 History Omeprazole 20 mg PO DAILY 12/14/19 12/14/19 History lamoTRIgine 100 mg PO BID 12/14/19 12/14/19 History risperiDONE [RisperDAL] 6 mg PO HS 12/14/19 12/14/19 History Allergies Allergy/AdvReac Type Severity Reaction Status Date / Time No Known Allergies Allergy Verified 12/14/19 08:26 Physical Exam Vitals: Vital Signs Temp Pulse Resp BP Pulse Ox 12/15/19 15:00 112 H 22 90 L 12/15/19 14:00 114 H 22 91 L 12/15/19 13:00 114 H 28 H 91 L 12/15/19 12:00 97.9 F 110 H 22 149/95 90 L 12/15/19 11:36 111 H 12/15/19 11:24 109 H 12/15/19 11:00 110 H 21 89 L 12/15/19 10:00 115 H 37 H 90 L 12/15/19 09:00 97.5 F L 113 H 22 165/109 89 L 12/15/19 08:42 118 H 12/15/19 08:31 118 H 12/15/19 08:30 118 H 12/15/19 08:14 116 H 12/15/19 08:00 115 H 29 H 87 L 12/15/19 07:00 115 H 26 H 90 L 12/15/19 06:00 117 H 26 H 141/81 89 L 12/15/19 05:00 116 H 25 H 158/88 87 L 12/15/19 04:00 98 F 117 H 21 85 L 12/15/19 03:00 120 H 25 H 161/101 86 L 12/15/19 02:00 116 H 18 165/100 89 L 12/15/19 01:00 113 H 23 161/78 88 L 12/15/19 00:00 114 H 33 H 157/60 93 L 12/14/19 23:00 112 H 40 H 151/96 92 L 12/14/19 22:00 98.4 F 108 H 35 H 152/95 93 L 12/14/19 21:00 105 H 29 H 93 L 12/14/19 20:00 110 H 13 164/104 90 L 12/14/19 19:29 107 H 18 12/14/19 19:13 101 H 18 12/14/19 19:02 103 H 18 12/14/19 19:00 105 H 25 H 140/86 92 L 12/14/19 18:00 104 H 26 H 120/58 87 L 12/14/19 17:00 107 H 26 H 132/87 88 L Intake and Output 12/15/19 12/15/19 12/15/19 06:59 14:59 22:59 Output Total 100 975 175 Balance -100 -975 -175 Output: Urine 100 975 175 Other: Voiding Method Urinal Indwelling Catheter Weight 81.6 kg - Constitutional General appearance: no acute distress - EENT Eyes: PERRLA ENT: hearing grossly normal Ears: bilateral: normal - Neck Neck: no lymphadenopathy - Respiratory Respiratory: bilateral: diminished - Cardiovascular Rhythm: regular - Gastrointestinal General gastrointestinal: no distended, no tenderness - Integumentary Integumentary: no calor, no cellulitis - Psychiatric Psychiatric: no A&O x's 3, no appropriate affect Results CBC & Chem 7: 12/15/19 05:27 12/15/19 05:27 Labs: Abnormal Lab Results - Last 24 Hours (Table) 12/15/19 12/15/19 Range/Units 05:27 05:27 MCV 101.2 H (80.0-100.0) fL Neutrophils # 9.5 H (1.3-7.7) k/uL Lymphocytes # 0.3 L (1.0-4.8) k/uL Sodium 132 L (137-145) mmol/L Chloride 88 L (98-107) mmol/L Carbon Dioxide 41 H* (22-30) mmol/L BUN 23 H (9-20) mg/dL Creatinine 0.51 L (0.66-1.25) mg/dL Glucose 139 H (74-99) mg/dL Chest x-ray: report reviewed, image reviewed CT scan - chest: report reviewed, image reviewed Assessment and Plan Assessment: The patient is a 64 year old male with O2 dependent-end stage COPD. He was recently found to have a 2 cm nodule in the RLL which was FDG avid. He was not felt to be a good candidate for biopsy due to very poor lung function (FEV1<20%). He was hospitalized due to COPD exacerbation. Plan: 1. COPD exacerbation - end stage disease. Per Dr. Hernandez the patient will enroll on hospice care at 's request. Did not improve after medical management. 2. Likely stage IA Lung ca - RLL nodule highly likely to be a lung primary cancer. This is unlikely to be affecting his current medical situation. If the patient had improved clinically treatment without tissue diagnosis would have been reasonable, however agree with plan for hospice care due to #1. Time with Patient: Less than 30
[2019-12-15 16:47] VITALS: PULSE 116; RESP 27
[2019-12-15] MEDS ORDERED: BUDESONIDE 1 MG/2 ML NEBU INHALATION SCH (20:00)
--- NOTE | 2019-12-15 21:31 | P.DS ---
Providers Date of admission: 12/14/19 02:48 Expected date of discharge: 12/15/19 Attending physician: Rene Perez Consults: 12/14/19 02:45 Consult Physician Stat Consulting Provider: Saide Hernandez Consult Reason/Comments: COPD exacerbation Do you want consulting provider notified?: Already Contacted 12/14/19 09:04 Consult Physician Routine Consulting Provider: Joaquim Mcelroy Consult Reason/Comments: right lower lobe nodule Do you want consulting provider notified?: Yes Primary care physician: Xavier [facility] Course: Chief Complaint: Dyspnea History of presenting complaint: This is a 64-year-old patient who follows with Dr. Galvin. Patient is known to Dr. Qureshi. He was then seen for a right lower lobe nodule suspicious 10 for a bronchogenic carcinoma. Patient also diagnosed her with severe end-stage COPD with a FEV1 of 20%. Patient's been on home oxygen. Patient did have a PET scan that showed increased uptake in that right lower lobe nodule suspicious for bronchogenic carcinoma. Patient presented to [facility] where he was short of breath lethargic hypercapnic. Was put on a BiPAP overnight. Patient in the ICU. Difficult to get history from the patient. Corroborative history was obtained to the ER nurse and the transfer notes. No history suggestive of any fever and chills. Today-I saw the patient the ICU earlier today. patient continued to do poorly. Very short of breath. Requiring high flow oxygen. Not doing well. Dr. Hernandez spoke to patient's . I got a call from the nurse that [facility] to take the patient home with hospice. Spoke to the protective services case worker. Hospice company will be going directly to the patient's home. Patient be discharged home with hospice to the . Discussion and discharge planning more than 35 minutes Consultation: Dr. hernandez from pulmonary Dr. Tyrone Mcelroy from radiation oncology Physical examination: VITAL SIGNS: 97.9, 110, 26, 149/95, 90% on high flow 20 L GENERAL: Laying in bed, short of breath, delirious EYES: Pupils equal. Conjunctiva normal. HEENT: External appearance of nose and ears normal, oral cavity dry. NECK: JVD unable to assess; masses not palpable. HEART: First and second heart sounds are normal; no edema. LUNGS: Respiratory rate increased; diminished breath sounds, prolonged expiration accessory muscle used. ABDOMEN: Soft, nontender, liver spleen not palpable, no masses palpable. PSYCH: Lethargic but arousablel. NEUROLOGICAL: [, moving all 4 limbs INVESTIGATIONS, reviewed in the clinical context: White count 10.1 hemoglobin 15.4 potassium 4.9 sodium 132 blood gases showed a pCO2 of 54 White count 5.9 hemoglobin 17.1 platelets 236 Potassium 4.6 bicarb 42 creatinine 0.66 troponin I 0.032, proBNP 2160 EKG tracing personally reviewed by me-normal sinus rhythm, T-wave changes Chest x-ray film personally reviewed by me-right lower lobe nodule from cardiomegaly 2-D echocardiogram-EF 40-45% moderate pulmonary hypertension moderate concentric LVH Assessment: -Acute severe COPD exacerbation in a patient with known FEV1 of 20%, in an [id number] improving -Acute hypoxic and hypercapnic respiratory failure on chronic patient requiring BiPAP-not improving -Acute metabolic encephalopathy from CO2 narcosis -Right lower lobe lung nodule highly suspicious for bronchogenic carcinoma in view of her positive PET scan -Chronic congestive heart failure from systolic dysfunction EF 4045% -Hypertensive heart disease -GERD -Essential hypertension -Secondary pulmonary hypertension due to COPD -Hyperkalemia -Hyponatremia Disposition: Home with hospice Patient Condition at Discharge: Poor Plan - Discharge Summary Discharge Rx Participant: No New Discharge Prescriptions: No Action Albuterol Nebulized [Ventolin Nebulized] 2.5 mg INHALATION TID PRN PRN Reason: Shortness Of Breath Albuterol Sulfate [Proair Hfa] 1 puff INHALATION QID PRN PRN Reason: Shortness Of Breath Atorvastatin [Lipitor] 20 mg PO HS Budesonide/Formoterol Fumarate [Symbicort 160-4.5 Mcg Inhaler] 2 puff INHALATION BID Diltiazem HCl [Cartia Xt] 240 mg PO DAILY Divalproex [Depakote] 500 mg PO BID lamoTRIgine 100 mg PO BID Lisinopril-Hctz 20-12.5 mg [Zestoretic 20-12.5] 1 tab PO DAILY Naproxen Sodium [Naprelan] 500 mg PO BID Omeprazole 20 mg PO DAILY risperiDONE [RisperDAL] 6 mg PO HS Discharge Medication List Albuterol Nebulized [Ventolin Nebulized] 2.5 mg INHALATION TID PRN 12/14/19 [History] Albuterol Sulfate [Proair Hfa] 1 puff INHALATION QID PRN 12/14/19 [History] Atorvastatin [Lipitor] 20 mg PO HS 12/14/19 [History] Budesonide/Formoterol Fumarate [Symbicort 160-4.5 Mcg Inhaler] 2 puff INHALATION BID 12/14/19 [History] Diltiazem HCl [Cartia Xt] 240 mg PO DAILY 12/14/19 [History] Divalproex [Depakote] 500 mg PO BID 12/14/19 [History] Lisinopril-Hctz 20-12.5 mg [Zestoretic 20-12.5] 1 tab PO DAILY 12/14/19 [History] Naproxen Sodium [Naprelan] 500 mg PO BID 12/14/19 [History] Omeprazole 20 mg PO DAILY 12/14/19 [History] lamoTRIgine 100 mg PO BID 12/14/19 [History] risperiDONE [RisperDAL] 6 mg PO HS 12/14/19 [History] Follow up Appointment(s)/Referral(s): Xavier Ott MD [Primary Care Provider] - 1-2 days Activity/Diet/Wound Care/Special Instructions: [facility] in [place] can be reached at [phone]. They are planning to open patient to services tonight at home. Please contact them if questions. Discharge Disposition: HOME WITH HOSPICE
== END 2019-12-15 19:35 | disposition hospice, home (50) | DRG 190 ==
LOC: EC 01:13 → 2SICU 02:48
PROVIDERS: ADMIT Hospitalist; ATTEND Hospitalist
PROC: 5A09357 Assistance with Respiratory Ventilation, Less than 24 Consecutive Hours, Continuous Positive Airway Pressure (ICD-10-PCS; principal; 2019-12-14)
DX: J44.1 Chronic obstructive pulmonary disease with (acute) exacerbation (principal); G93.41 Metabolic encephalopathy; J96.22 Acute and chronic respiratory failure with hypercapnia; J96.21 Acute and chronic respiratory failure with hypoxia; I50.22 Chronic systolic (congestive) heart failure; E87.1 Hypo-osmolality and hyponatremia; C34.91 Malignant neoplasm of unspecified part of right bronchus or lung; F05 Delirium due to known physiological condition; K21.9 Gastro-esophageal reflux disease without esophagitis; I27.29 Other secondary pulmonary hypertension; D17.9 Benign lipomatous neoplasm, unspecified; F31.9 Bipolar disorder, unspecified; I11.0 Hypertensive heart disease with heart failure; E87.5 Hyperkalemia; F17.200 Nicotine dependence, unspecified, uncomplicated; Z79.51 Long term (current) use of inhaled steroids; Z79.899 Other long term (current) drug therapy; Z82.5 Family history of asthma and other chronic lower respiratory diseases; Z80.0 Family history of malignant neoplasm of digestive organs; Z85.118 Personal history of other malignant neoplasm of bronchus and lung; Z99.81 Dependence on supplemental oxygen
CPT/HCPCS: 36415; 36600; 71045; 80048; 80053; 82803; 82805; 83880; 84484; 85025; 85610; 85730; 93005; 93306; 93970; 94640; 94660; 99291